=== PATIENT | female | born 1950 | race Caucasian/White ===

== ENCOUNTER → 2016-10-11 | Outpatient (CLI) | payer BC | LOC: MC.RAD 07:40 | DX: Z12.31 Encounter for screening mammogram for malignant neoplasm of breast (principal) ==

== ENCOUNTER → 2017-02-11 | Outpatient (CLI) | payer BC | LOC: COL.RAD 09:23 | DX: N28.89 Other specified disorders of kidney and ureter (principal) ==

== ENCOUNTER 2017-03-15 07:26 | Day surgery (SDC) | payer BC ==
[~2017-03-15] VITALS: Ht 167.6 cm; Wt 116.7 kg
[2017-03-15] MEDS ORDERED: AVAPRO300 M1 PO (07:54)
[2017-03-15] MEDS ORDERED: ESTRACE 1MG1 MG/TAB PO (07:54)
[2017-03-15] MEDS ORDERED: VITAMIND3 5000 (07:55)
[2017-03-15] MEDS ORDERED: ASPIRIN 81M81 MG/TA2 PO (07:55)
[2017-03-15] MEDS ORDERED: VITAMINC1000TA (07:56)
[2017-03-15] MEDS ORDERED: MULTIPLE VITAMI1 TA5 PO (07:56)
[2017-03-15 08:21] VITALS: BP 181/79; PULSE 72; TEMP 98.1
[2017-03-15 09:09] VITALS: BP 135/65; PULSE 74; TEMP 97.6
[2017-03-15 09:15] VITALS: BP 122/58; PULSE 68
[2017-03-15 09:30] VITALS: BP 123/70; PULSE 70
[2017-03-15 12:09] VITALS: BP 123/67; PULSE 74
== END 2017-03-15 09:44 | disposition home or self-care (01) ==
LOC: SDCO 07:26
DX: K31.89 Other diseases of stomach and duodenum (principal); K57.90 Diverticulosis of intestine, part unspecified, without perforation or abscess without bleeding; Z90.710 Acquired absence of both cervix and uterus; Z79.82 Long term (current) use of aspirin; I10 Essential (primary) hypertension; E66.9 Obesity, unspecified; Z68.41 Body mass index [BMI] 40.0-44.9, adult; K58.9 Irritable bowel syndrome, unspecified; Z90.49 Acquired absence of other specified parts of digestive tract; J30.9 Allergic rhinitis, unspecified; M47.9 Spondylosis, unspecified; E78.00 Pure hypercholesterolemia, unspecified; G43.909 Migraine, unspecified, not intractable, without status migrainosus; F32.9 Major depressive disorder, single episode, unspecified; E88.81 Metabolic syndrome and other insulin resistance; E78.5 Hyperlipidemia, unspecified; M17.0 Bilateral primary osteoarthritis of knee; Z96.653 Presence of artificial knee joint, bilateral
CPT/HCPCS: OP; J2250; J3010; J7030

== ENCOUNTER → 2017-10-26 | Outpatient (CLI) | payer BC ==
[~2017-10-26] MED LIST: ASPIRIN 81M81 MG/TA2 PO; AVAPRO300 M1 PO; ESTRACE 1MG1 MG/TAB PO; MULTIPLE VITAMI1 TA5 PO; VITAMINC1000TA; VITAMIND3 5000
== END ==
LOC: MC.RAD 08:28
DX: Z12.31 Encounter for screening mammogram for malignant neoplasm of breast (principal); N64.89 Other specified disorders of breast

== ENCOUNTER → 2017-10-28 | Outpatient (CLI) | payer BC | LOC: MC.RAD 10:30 | DX: N60.02 Solitary cyst of left breast (principal) ==

== ENCOUNTER → 2018-11-16 | Outpatient (CLI) | payer BC | LOC: MC.RAD 08:50 | DX: Z12.31 Encounter for screening mammogram for malignant neoplasm of breast (principal); Z98.82 Breast implant status ==

== ENCOUNTER → 2019-11-19 | Outpatient (CLI) | payer BC | LOC: MC.RAD 08:41 | DX: Z12.31 Encounter for screening mammogram for malignant neoplasm of breast (principal); Z98.82 Breast implant status ==

== ENCOUNTER → 2020-12-02 | Outpatient (CLI) | payer BC | LOC: MC.RAD 09:30 | DX: Z12.31 Encounter for screening mammogram for malignant neoplasm of breast (principal) ==

== ENCOUNTER → 2021-06-12 | Outpatient (CLI) | payer MEDICARE, OTHER | LOC: COL.RAD 07:44 | DX: R79.89 Other specified abnormal findings of blood chemistry (principal); Z90.49 Acquired absence of other specified parts of digestive tract ==

== ENCOUNTER → 2023-01-06 | Outpatient (CLI) | payer MEDICARE, OTHER | LOC: CANSCHCLI → MC.RAD 10:08 | DX: Z12.31 Encounter for screening mammogram for malignant neoplasm of breast (principal) ==